=== PATIENT | female | born 1950 | race Caucasian/White ===

== ENCOUNTER → 2016-06-24 | Outpatient (CLI) | payer OTHER ==
--- NOTE | 2016-06-24 11:02 | REPMRS ---
Patient History The patient states she had a clinical breast exam in 06/2016. Patient is postmenopausal, has history of colorectal cancer at age 58, and had previous chemotherapy at age 58. Family history of colorectal cancer in father at age 50 or over and breast cancer in sister at age 18. Benign FNA biopsy of the right breast, 1998. Digital Woman Screen Mammo: June 24, 2016 - Exam #: [id number] Bilateral CC and MLO view(s) were taken. Technologist: Amy Davies, Technologist Prior study comparison: April 18, 2015, digital woman screen mammo performed at [facility]. March 05, 2014, digital woman screen mammo performed at [facility]. FINDINGS: The breast tissue is extremely dense which could obscure a lesion on mammography. There is no evidence of cancer on this mammogram. No significant changes when compared with prior studies. ASSESSMENT: BI-RADS/ACR category 2 mammogram. Benign finding(s). Recommendation Routine screening mammogram of both breasts in 1 year (for women over age 40). This mammogram was interpreted with the aid of an FDA-approved computer-aided dectection system. Electronically Signed By: Solitario Geiger MD 06/24/16 2952
== END ==
LOC: M WHC 09:21
PROVIDERS: ATTEND Nurse Practitioner Women's Health
DX: Z12.31 Encounter for screening mammogram for malignant neoplasm of breast (principal); Z80.3 Family history of malignant neoplasm of breast; Z78.0 Asymptomatic menopausal state; Z92.21 Personal history of antineoplastic chemotherapy; Z85.038 Personal history of other malignant neoplasm of large intestine
CPT/HCPCS: G0123; G0202; G0463

== ENCOUNTER → 2016-06-24 | Outpatient (REF) | payer OTHER | LOC: M SFHCWAGY 09:39 | PROVIDERS: ATTEND Nurse Practitioner Women's Health | DX: Z12.4 Encounter for screening for malignant neoplasm of cervix (principal); R87.5 Abnormal microbiological findings in specimens from female genital organs ==

== ENCOUNTER → 2017-09-07 | Outpatient (CLI) | payer MEDICARE, OTHER | LOC: M WHC 13:27 | DX: Z12.31 Encounter for screening mammogram for malignant neoplasm of breast (principal); Z78.0 Asymptomatic menopausal state; Z92.21 Personal history of antineoplastic chemotherapy; Z85.038 Personal history of other malignant neoplasm of large intestine; Z80.3 Family history of malignant neoplasm of breast; Z92.89 Personal history of other medical treatment | CPT/HCPCS: 77067; G0123 ==

== ENCOUNTER → 2017-09-07 | Outpatient (REF) | payer MEDICARE, OTHER ==
[2017-09-09 14:41] LABS: HPV HYBRID CAPTURE II Negative (Negative)
== END ==
LOC: M SFHCWAGY 13:33
DX: Z12.4 Encounter for screening for malignant neoplasm of cervix (principal)
CPT/HCPCS: G0123

== ENCOUNTER → 2018-09-13 | Outpatient (CLI) | payer MEDICARE, OTHER ==
--- NOTE | 2018-09-13 15:32 | REPMRS ---
Patient History The patient states she had a clinical breast exam in 08/2018. Family history of colorectal cancer at age 50 or over in father, breast cancer at age 18 in sister. Benign FNA biopsy of the right breast, 1998. No Hormone Replacement Therapy 3D TOMOSYNTHESIS WAS PERFORMED. The [facility] [address] lifetime risk for breast cancer is 13.4%. Digital Woman Screen Mammo: September 13, 2018 - Exam #: [id number] Bilateral CC and MLO view(s) were taken. Technologist: Amy Davies, Technologist Prior study comparison: September 07, 2017, bilateral digital woman screen mammo performed at [facility]. June 24, 2016, digital woman screen mammo performed at [facility]. FINDINGS: The breast tissue is heterogeneously dense. This may lower the sensitivity of mammography. There has been no change in the appearance of the mammogram from the prior studies. There is a moderate amount of residual fibroglandular tissue which is fairly symmetric. There is no interval development of dominant mass, areas of architectural distortion, or clustered microcalcification typical of malignancy. Assessment: BI-RADS/ACR category 1 mammogram. Negative Mammogram. Recommendation Routine screening mammogram in 1 year (for women over age 40). This mammogram was interpreted with the aid of an FDA-approved computer-aided dectection system. Electronically Signed By: Solitario Geiger MD 09/13/18 1526
== END ==
LOC: M WHC 13:04
PROVIDERS: ATTEND Nurse Practitioner Women's Health
DX: Z01.419 Encounter for gynecological examination (general) (routine) without abnormal findings (principal); Z12.31 Encounter for screening mammogram for malignant neoplasm of breast; Z80.0 Family history of malignant neoplasm of digestive organs; Z80.3 Family history of malignant neoplasm of breast; Z86.018 Personal history of other benign neoplasm
CPT/HCPCS: 77063; 77067; G0101

== ENCOUNTER → 2019-10-16 | Outpatient (CLI) | payer MEDICARE, OTHER ==
--- NOTE | 2019-10-17 11:18 | REPMRS ---
Patient History The patient states she had a clinical breast exam in 09/2019. Family history of colorectal cancer at age 50 or over in father, breast cancer at age 18 in sister. Benign FNA biopsy of the right breast, 1998. No Hormone Replacement Therapy Digital Woman Screen Mammo: October 16, 2019 - Exam #: [id number] Bilateral CC and MLO view(s) were taken. Technologist: Becca Tello, Technologist Prior study comparison: September 13, 2018, bilateral digital woman screen mammo performed at [facility]. September 07, 2017, bilateral digital woman screen mammo performed at [facility]. June 24, 2016, digital woman screen mammo performed at [facility]. FINDINGS: The breast tissue is heterogeneously dense. This may lower the sensitivity of mammography. The Volpara volumetric breast density category is: C. There is a moderate amount of heterogeneously dense fibroglandular tissue which is fairly symmetric. There is no interval development of dominant mass, architectural distortion, or grouped microcalcification typical of malignancy. There has been no change in the appearance of the mammogram from the prior studies. 3-D tomosynthesis shows no additional findings. Assessment: BI-RADS/ACR category 1 mammogram. Negative Mammogram. Recommendation Routine screening mammogram of both breasts in 1 year (for women over age 40). This patient's Lifetime Breast Cancer RIsk is estimated at 12.7 %. This mammogram was interpreted with the aid of an FDA-approved computer-aided dectection system. Electronically Signed By: Rishi Villareal MD 10/17/19 [id number]
== END ==
LOC: M WHC 14:49
PROVIDERS: ATTEND Nurse Practitioner Women's Health
DX: Z12.31 Encounter for screening mammogram for malignant neoplasm of breast (principal)

== ENCOUNTER → 2020-10-24 | Outpatient (CLI) | payer MEDICARE, OTHER ==
--- NOTE | 2020-10-24 13:10 | REPMRS ---
Patient History The patient states she had a clinical breast exam in 2020. Family history of colorectal cancer at age 50 or over in father, breast cancer at age 18 in sister. Benign FNA biopsy of the right breast, 1998. No Hormone Replacement Therapy No breast complaints today Patient signed the MRS sheet Patient states she had her 1st covid vaccine in Mar. and the 2nd in April both in the left arm, not sure of dates Patient states she has had a 20lb intentional weight loss in the last year Priors on PACS Patient Identification Verified Digital Woman Screen Mammo: October 24, 2020 - Exam #: [id number] Bilateral CC and MLO view(s) were taken. Technologist: Becca Tello, Technologist Prior study comparison: October 16, 2019, bilateral digital woman screen mammo performed at [facility]. September 13, 2018, bilateral digital woman screen mammo performed at [facility]. September 07, 2017, bilateral digital woman screen mammo performed at [facility]. FINDINGS: The breast tissue is heterogeneously dense. This may lower the sensitivity of mammography. The Volpara volumetric breast density category is: C. There is a moderate amount of heterogeneously dense fibroglandular tissue which is fairly symmetric. There is no interval development of dominant mass, architectural distortion, or grouped microcalcification typical of malignancy. There has been no change in the appearance of the mammogram from the prior studies. 3-D tomosynthesis shows no additional findings. Assessment: BI-RADS/ACR category 1 mammogram. Negative Mammogram. Recommendation Routine screening mammogram of both breasts in 1 year (for women over age 40). This patient's [facility] [address] Lifetime Breast Cancer RIsk is estimated at 12.0 %. This mammogram was interpreted with the aid of an FDA-approved computer-aided dectection system. Electronically Signed By: Rishi Villareal MD 10/24/20 [id number]
== END ==
LOC: M WHC 11:16
PROVIDERS: ATTEND Nurse Practitioner Women's Health
DX: Z01.419 Encounter for gynecological examination (general) (routine) without abnormal findings (principal); Z12.31 Encounter for screening mammogram for malignant neoplasm of breast; Z80.0 Family history of malignant neoplasm of digestive organs; Z80.3 Family history of malignant neoplasm of breast; Z86.018 Personal history of other benign neoplasm
CPT/HCPCS: 77063; 77067; G0101

== ENCOUNTER → 2021-10-30 | Outpatient (CLI) | payer MEDICARE, OTHER | LOC: M WHC 12:56 | PROVIDERS: ATTEND Physician Assistant | DX: Z12.31 Encounter for screening mammogram for malignant neoplasm of breast (principal) ==

== ENCOUNTER → 2022-12-17 | Outpatient (CLI) | payer MEDICARE, OTHER | LOC: M WHC 07:01 | PROVIDERS: ATTEND Physician Assistant | DX: Z12.31 Encounter for screening mammogram for malignant neoplasm of breast (principal) ==

== ENCOUNTER → 2024-05-03 | Outpatient (CLI) | payer MEDICARE, OTHER | LOC: M WHC 10:09 | PROVIDERS: ATTEND Physician Assistant | DX: Z12.31 Encounter for screening mammogram for malignant neoplasm of breast (principal); R92.333 Mammographic heterogeneous density, bilateral breasts ==